=== PATIENT | male | born 1990 | race Caucasian/White ===

== ENCOUNTER → 2017-10-31 | Outpatient (REF) ==
[2017-10-31 11:44] LABS: LDL CHOLESTEROL 113 mg/dl
== END ==
DX: Z02.9 Encounter for administrative examinations, unspecified (principal)

== ENCOUNTER 2018-07-29 07:19 | Emergency (ER) | payer OTHER ==
--- NOTE | 2018-07-29 07:29 | ER Report ---
History and Physical Time Seen By MD: 07:29 HPI/ROS CHIEF COMPLAINT: Left foot injury HISTORY OF PRESENT ILLNESS: Patient is a 27-year-old male who presents to the emergency department after sustaining a foot injury yesterday at work. Patient states a steel plate fell on top of his left foot and ankle. Patient was wearing work boots at that time. Over the course of the evening he is had increasing pain and swelling. When he went to work today was recommended that he follow up in the emergency department for evaluation and x-ray imaging. Allergies: Coded Allergies: No Known Drug Allergies (Unverified , 07/29/18) Home Meds No Active Prescriptions or Reported Meds Past Medical/Surgical History Noncontributory towards this chief complaint Constitutional Vital Sign - Last 24 Hours 07/29/18 07:31 Temp 97.5 Pulse 64 Resp 20 B/P (MAP) 140/93 Pulse Ox 94 O2 Delivery Room Air Physical Exam General appearance: alert no distress Left ankle: There is no significant swelling. There is no obvious deformity to the ankle. There is moderate tenderness to the lateral malleolus. Ankle joint is stable and there is no tenderness over the achilles tendon. There is swelling to the dorsum of the foot along with abrasion without secondary signs of infection. This area is tender to palpation. Patient is ambulatory Neurologic exam: The patient has normal sensation distal to the injury. Vascular exam: Normal pulses and capillary refill in the foot [ ] DIFFERENTIAL DIAGNOSIS: After history and physical exam differential diagnosis was considered for ankle and/or foot injury including sprain, fracture, dislocation and soft tissue injury. Medical Decision Making EKG/Imaging Imaging X-ray of the left ankle and foot reveals no acute fracture x-ray was interpreted by myself. ED Course/Re-evaluation ED Course Plan at this time will be to x-ray of the left foot and left ankle. Decision to Disposition Date: Jul 29, 2018 Decision to Disposition Time: 08:21 Depart Departure Latest Vital Signs Vital Signs Date Time Temp Pulse Resp B/P (MAP) Pulse Ox O2 Delivery O2 Flow Rate FiO2 07/29/18 07:31 97.5 64 20 140/93 94 Room Air Impression: Primary Impression: Contusion, foot Condition: Improved Disposition: HOME OR SELF-CARE New Scripts No Active Prescriptions or Reported Meds Patient Instructions: Contusion in Adults (ED) Additional Instructions: Take Tylenol or Motrin as directed for pain. Ice for 2-3 times per day for 10-15 minutes for the next 3-5 days. If you still have painful weightbearing in 7 days you should schedule follow-up appointment with your primary care provider for reevaluation. Problem Qualifiers Primary Impression: Contusion, foot Encounter type: initial encounter Laterality: left Qualified Codes: S90.32XA - Contusion of left foot, initial encounter ROSALVA LINARES MD Jul 29, 2018 07:29
[2018-07-29 08:33] VITALS: BP 124/97
--- NOTE | 2018-07-29 08:37 | RADIOLOGY IMAGING REPORT ---
FACILITY: [facility] - [place] PATIENT NAME: Issac Sanders : 1990 MR: [id number] V: [id number] EXAM DATE: ORDERING PHYSICIAN: ROSALVA LINARES TECHNOLOGIST: Location: [facility] [place] Patient: Issac Sanders : 1990 Visit/Account:[id number] Date of Sevice: 07/29/2018 FOOT 3 VIEW LEFT, ANKLE 3 VIEW MIN LEFT HISTORY: trauma Additional history: None COMPARISON: None. FINDINGS: Osseous structures appear intact. No definite evidence of fracture. I would caution that tarsal fra ctures can be difficult to identify radiographically. There is a prominent beaking of the navicular. IMPRESSION: Negative for trauma. If there is continued strong clinical suspicion consider follow-up CT Report Dictated By: Vini Quintero MD at 07/29/2018 8:24 AM Report E-Signed By: Vini Quintero MD at 07/29/2018 8:34 AM WSN:[email or web address]
--- NOTE | 2018-07-29 08:38 | RADIOLOGY IMAGING REPORT ---
FACILITY: [facility] PATIENT NAME: Issac Sanders : 1990 MR: [id number] V: [id number] EXAM DATE: ORDERING PHYSICIAN: ROSALVA LINARES TECHNOLOGIST: Location: [facility] Patient: Issac Sanders : 1990 Visit/Account:[id number] Date of Sevice: 07/29/2018 FOOT 3 VIEW LEFT, ANKLE 3 VIEW MIN LEFT HISTORY: trauma Additional history: None COMPARISON: None. FINDINGS: Osseous structures appear intact. No definite evidence of fracture. I would caution that tarsal fra ctures can be difficult to identify radiographically. There is a prominent beaking of the navicular. IMPRESSION: Negative for trauma. If there is continued strong clinical suspicion consider follow-up CT Report Dictated By: Vini Quintero MD at 07/29/2018 8:24 AM Report E-Signed By: Vini Quintero MD at 07/29/2018 8:34 AM WSN:[email or web address]
== END 2018-07-29 08:31 | disposition home or self-care (01) ==
LOC: ER 07:32
DX: S90.32XA Contusion of left foot, initial encounter (principal); W20.8XXA Other cause of strike by thrown, projected or falling object, initial encounter
CPT/HCPCS: 99284